=== PATIENT | female | born 1970 | race Caucasian/White ===

== ENCOUNTER 2016-12-22 07:18 | Emergency (ER) | payer BC ==
[2016-12-22 07:32] VITALS: BP 133/78
[2016-12-22] MEDS ORDERED: Sodium Chloride 0.9% 10 ML Syringe FLUSH PRN (07:45)
[2016-12-22] MEDS ORDERED: Sodium Chloride 0.9% 500 ML IV ONE (07:46)
--- NOTE | 2016-12-22 08:42 | EDM.PDOC ---
ED HPI GENERAL MEDICAL PROBLEM - General Chief Complaint: Flank Pain Stated Complaint: FLANK PAIN Time Seen by Provider: 12/22/16 07:27 Source of Information: Reports: Patient, RN Notes Reviewed - History of Present Illness INITIAL COMMENTS - FREE TEXT/NARRATIVE: 46-year-old female comes in with right low back pain. She had potential injury about 2 weeks ago when a horse stepped over her. However no bruise or specific injury that she was aware of at the time. She did have some hematuria for a day or 2 after that but no major back or flank discomfort. She then started having hematuria a couple of days ago described as "orange urine". She has been having right back discomfort that was quite severe for a period of time this morning now somewhat better. The pain has not been radiating to the right flank or right abdomen. No nausea vomiting fever chills. No voiding burning or dysuria. Right Upper Flank Pain Score (Numeric/FACES): 3 - Related Data Allergies Allergy/AdvReac Type Severity Reaction Status Date / Time metal Allergy Rash Uncoded 06/14/14 05:49 Home Meds: Home Meds Acetaminophen/HYDROcodone [[place] 325-5 MG] 1 tab PO Q6H PRN #14 tablet 12/22/16 [Rx] Past Medical History Genitourinary History: Reports: Renal Calculus Social & Family History - Tobacco Use Smoking Status *Q: Never Smoker Second Hand Smoke Exposure: No - Caffeine Use Caffeine Use: Reports: Coffee - Alcohol Use Days Per Week of Alcohol Use: 0 - Recreational Drug Use Recreational Drug Use: No ED ROS GENERAL - Review of Systems Review Of Systems: See Below Constitutional: Denies: Fever, Chills, Diaphoresis HEENT: Reports: No Symptoms Respiratory: Denies: Shortness of Breath, Pleuritic Chest Pain GI/Abdominal: Denies: Abdominal Pain, Diarrhea, Nausea, Vomiting : Reports: Hematuria (Mild). Denies: Dysuria, Pain Musculoskeletal: Reports: Back Pain (Right back discomfort) Skin: Reports: No Symptoms Neurological: Reports: No Symptoms ED EXAM,LOWER BACK PAIN/INJURY - Physical Exam Exam: See Below General Appearance: Alert, No Apparent Distress Eye Exam: Bilateral Eye: PERRL Throat/Mouth: Normal Inspection, Normal Oropharynx Head: No: Facial Swelling Neck: Supple, Full Range of Motion Respiratory/Chest: No Respiratory Distress, Lungs Clear, Normal Breath Sounds Cardiovascular: Bradycardia GI/Abdominal: Soft, Non-Tender. No: Guarding Back Exam: Paraspinal Tenderness (For a mild tenderness right low back). No: CVA Tenderness (L), CVA Tenderness (R) Extremities: No: Normal Inspection, Leg Pain Neurological: Alert, No Motor/Sensory Deficits, Oriented x 3 Course - Vital Signs Last Recorded V/S: Last Vital Signs Temp 97.3 F 12/22/16 07:27 Pulse 50 L 12/22/16 07:27 Resp 18 12/22/16 07:27 BP 133/78 12/22/16 07:27 Pulse Ox 97 12/22/16 07:27 - Orders/Labs/Meds Orders: Active Orders 24 hr Category Date Time Status Peripheral IV Care [RC] . DIRECTED Care 12/22/16 07:46 Active Peripheral IV Insertion Adult [OM.PC] Stat Oth 12/22/16 07:45 Ordered Labs: Laboratory Tests 12/22/16 12/22/16 12/22/16 Range/Units 07:54 07:54 08:56 WBC 5.71 (3.98-10.04) K/mm3 RBC 4.30 (3.98-5.22) M/mm3 Hgb 12.6 (11.2-15.7) gm/L Hct 38.1 (34.1-44.9) % MCV 88.6 (79.4-94.8) fl MCH 29.3 (25.6-32.2) pg MCHC 33.1 (32.2-35.5) g/dl RDW Std Deviation 41.5 (36.4-46.3) fL Plt Count 239 (182-369) K/mm3 MPV 9.5 (9.4-12.3) fl Neut % (Auto) 51.8 (34.0-71.1) % Lymph % (Auto) 30.6 (19.3-51.7) % [place] % (Auto) 14.5 H (4.7-12.5) % Eos % (Auto) 2.5 (0.7-5.8) Baso % (Auto) 0.4 (0.1-1.2) % Neut # (Auto) 2.96 (1.56-6.13) K/mm3 Lymph # (Auto) 1.75 (1.18-3.74) K/mm3 [place] # (Auto) 0.83 H (0.24-0.36) K/mm3 Eos # (Auto) 0.14 (0.04-0.36) K/mm3 Baso # (Auto) 0.02 (0.01-0.08) K/mm3 Sodium 143 (136-145) mEq/L Potassium 3.9 (3.5-5.1) mEq/L Chloride 108 H (98-107) mEq/L Carbon Dioxide 24 (21-32) mEq/L Anion Gap 14.9 (5-15) BUN 14 (7-18) mg/dL Creatinine 0.8 (0.55-1.02) mg/dL Est Cr Clr Drug Dosing 100.30 mL/min Estimated GFR (MDRD) > 60 (>60) mL/min BUN/Creatinine Ratio 17.5 (14-18) Glucose 91 (74-106) mg/dL Calcium 8.7 (8.5-10.1) mg/dL Total Bilirubin 0.4 (0.2-1.0) mg/dL AST 14 L (15-37) U/L ALT 23 (14-59) U/L Alkaline Phosphatase 63 (46-116) U/L Total Protein 6.5 (6.4-8.2) g/dl Albumin 3.6 (3.4-5.0) g/dl Globulin 2.9 gm/dL Albumin/Globulin Ratio 1.2 (1-2) Urine Color Yellow (Yellow) Urine Appearance Clear (Clear) Urine pH 6.0 (5.0-8.0) Ur Specific [place] 1.025 (1.005-1.030) Urine Protein Negative (Negative) Urine Glucose (UA) Negative (Negative) Urine Ketones Negative (Negative) Urine Occult Blood 3+ H (Negative) Urine Nitrite Negative (Negative) Urine Bilirubin Negative (Negative) Urine Urobilinogen 0.2 (0.2-1.0) Ur Leukocyte Esterase Negative (Negative) Urine RBC 10-20 H (0-5) /hpf Urine WBC 0-5 (0-5) /hpf Ur Epithelial Cells 0-5 (0-5) /hpf Urine Bacteria Few (FEW) /hpf Urine Mucus Few (FEW) /hpf Meds: Medications Discontinued Medications Generic Name Dose Route Start Last Admin Trade Name Freq PRN Reason Stop Dose Admin Sodium Chloride 500 mls @ 999 mls/hr 12/22/16 07:46 12/22/16 07:53 Normal Saline IV 12/22/16 08:16 999 mls/hr .BOLUS ONE Administration Sodium Chloride 10 ml 12/22/16 07:45 12/22/16 07:53 Saline Flush FLUSH 10 ml ASDIRECTED PRN Administration Keep Vein Open - Re-Assessments/Exams Free Text/Narrative Re-Assessment/Exam: 12/22/16 10:54 CT of abdomen pelvis does show a 6 mm stone right UPJ. There is some hydronephrosis of the right kidney. See radiology report for details. She has been resting quite comfortably while here in the ED. She she has been offered Tylenol but does not want that or anything else at this time. She has seen a Urologist before with her prior kidney stone at [facility]. She will call and make an appointment for first available appointment. We've asked radiology to push the study to [facility]. Departure - Departure Time of Disposition: 09:21 Disposition: Home, Self-Care 01 Condition: Fair Clinical Impression: Kidney stone on right side - Discharge Information Prescriptions: Acetaminophen/HYDROcodone [[place] 325-5 MG] 1 tab PO Q6H PRN #14 tablet PRN Reason: Pain Instructions: Kidney Stones, [id number] Referrals: Jesusita Hoffmann, [employer] [Primary Care Provider] - Forms: ED Department Discharge Additional Instructions: If you feel like the stone is traveling than strain urine to watch for stone. Drink plenty of water to maintain hydration. Tylenol for mild to moderate discomfort or hydrocodone if needed for severe pain. See your Urologist at [facility] as soon as possible this week, call for next available appointment. We have asked radiology to push your CT scan to [facility]. Return to ED as needed. - My Orders Last 24 Hours: My Active Orders 12/22/16 07:45 Peripheral IV Insertion Adult [OM.PC] Stat 12/22/16 07:46 Peripheral IV Care [RC] . DIRECTED - Assessment/Plan Last 24 Hours: My Active Orders 12/22/16 07:45 Peripheral IV Insertion Adult [OM.PC] Stat 12/22/16 07:46 Peripheral IV Care [RC] . DIRECTED
--- NOTE | 2016-12-22 08:45 | CT ---
CT abdomen and pelvis Technique: Multiple axial sections were obtained from the top of the liver inferiorly through the pubic symphysis. Intravenous and oral contrast was not utilized. Study has been performed as a ureteral stone protocol. Comparison: Previous noncontrast stone protocol CT dated 06/14/14. Findings: Hydronephrosis is noted of the right kidney. This finding is due to an obstructing stone located within the proximal right ureter at the UPJ. This stone measures approximately 6.0 mm. Small nonobstructing stone is noted within both kidneys. No other ureteral calculus is seen. Visualized lung bases show nothing acute. Noncontrast appearance of the liver and spleen appear within normal limits. Adrenal glands show no nodule. Pancreas is within normal limits. Gallbladder shows no calcified gallstones. Aorta shows no aneurysmal dilatation. No retroperitoneal adenopathy or mesenteric abnormalities are seen. No pelvic mass or adenopathy is seen. Appendix is seen which is normal. No pelvic mass or adenopathy is identified. Bone window settings were reviewed which appear within normal limits for the patient's age. Impression: 1. 6 mm obstructing stone located proximally within the right ureter at the UPJ. 2. Small nonobstructing stone is noted within each kidney. 3. Other normal findings as described above. Diagnostic code #3
== END 2016-12-22 09:31 | disposition home or self-care (01) ==
LOC: JD.ED 07:18
DX: N13.2 Hydronephrosis with renal and ureteral calculous obstruction (principal)
CPT/HCPCS: 36415; 74176; 80053; 81001; 85025; 99284; J7040; J7050; 99283

== ENCOUNTER 2017-02-13 10:34 | Emergency (ER) | payer BC ==
[2017-02-13 10:52] VITALS: BP 157/96
[2017-02-13] MEDS ORDERED: HYDROmorphone 1 MG/ML Syringe IVPUSH ONE (11:18)
[2017-02-13] MEDS ORDERED: Ondansetron 4 MG/2 ML SDV IVPUSH ONE (11:18)
[2017-02-13] MEDS ORDERED: Sodium Chloride 0.9% 1,000 ML IV ONE ×2 (11:18→13:47)
[2017-02-13] MEDS ORDERED: Sodium Chloride 0.9% 10 ML Syringe FLUSH PRN (11:18)
--- NOTE | 2017-02-13 11:21 | EDM.PDOC ---
ED HPI GENERAL MEDICAL PROBLEM - General Chief Complaint: Flank Pain Stated Complaint: LOWER ABD PAIN BACK PAIN VOMITING Time Seen by Provider: 02/13/17 11:10 Source of Information: Reports: Patient, Old Records (recent ER visit 2016 ) History Limitations: Reports: No Limitations - History of Present Illness INITIAL COMMENTS - FREE TEXT/NARRATIVE: 46 year old female presents for evaluation and treatment of right flank and back pain. Reports the pain started this morning. Reports associated symptoms of nausea, vomiting, headache, dysuria, increased urinary freqyncy and hematuria. No fevers or abdominal pain. Patient reports she has had 2 kidney stones in the past. Most recently had a stone in November,. She was seen here and found to have a 6mm stone, does not recall the side. She followed up with her urologist in [place]. Plan was to have a lithotripsy but they could not find the stone at that time. Patient is also complaining of a headache. Review of the records shows the patient had a 6mm obstructing stone in the right ureter. Onset: Today Location: Reports: Back (right lower back and flank) Right Flank Pain Score (Numeric/FACES): 10 - Related Data Allergies Allergy/AdvReac Type Severity Reaction Status Date / Time metal Allergy Rash Uncoded 02/13/17 10:55 Home Meds: Home Meds Acetaminophen/HYDROcodone [[place] 325-5 MG] 1 tab PO Q6H PRN #14 tablet 12/22/16 [Rx] Tamsulosin [Flomax] 0.4 mg PO DAILY PRN 02/13/17 [History] Past Medical History Genitourinary History: Reports: Renal Calculus - Past Surgical History Female Surgical History: Reports: Lithotripsy/ESWL Social & Family History - Tobacco Use Smoking Status *Q: Never Smoker Second Hand Smoke Exposure: No - Caffeine Use Caffeine Use: Reports: Coffee - Alcohol Use Days Per Week of Alcohol Use: 0 - Recreational Drug Use Recreational Drug Use: No ED ROS GENERAL - Review of Systems Review Of Systems: See Below Constitutional: Denies: Fever GI/Abdominal: Reports: Nausea, Vomiting. Denies: Abdominal Pain : Reports: Dysuria, Flank Pain (right), Frequency, Hematuria Musculoskeletal: Reports: Back Pain (right mid back) Neurological: Reports: Headache ED EXAM, RENAL/ - Physical Exam Exam: See Below Exam Limited By: No Limitations General Appearance: Alert, WD/WN, Mild Distress, Obese Neck: Normal Inspection Respiratory/Chest: No Respiratory Distress, Lungs Clear, Normal Breath Sounds Cardiovascular: Normal Peripheral Pulses, Regular Rate, Rhythm, No Murmur GI/Abdominal: Normal Bowel Sounds, Soft, Non-Tender Back Exam: Normal Inspection, CVA Tenderness (R). No: CVA Tenderness (L) Neurological: Alert, Oriented, Normal Cognition Psychiatric: Normal Affect, Normal Mood Skin Exam: Warm, Dry, Normal Color Course - Vital Signs Last Recorded V/S: Last Vital Signs Temp 35.3 C 02/13/17 10:49 Pulse 74 02/13/17 10:49 Resp 16 02/13/17 10:49 BP 157/96 H 02/13/17 10:49 Pulse Ox 99 02/13/17 10:49 - Orders/Labs/Meds Orders: Active Orders 24 hr Category Date Time Status Peripheral IV Care [RC] . DIRECTED Care 02/13/17 11:18 Active CULTURE URINE [RM] Stat Lab 02/13/17 11:17 Received Peripheral IV Insertion Adult [OM.PC] Routine Oth 02/13/17 11:18 Ordered Labs: Laboratory Tests 02/13/17 02/13/17 02/13/17 Range/Units 11:00 11:00 11:00 WBC 10.72 H (3.98-10.04) K/mm3 RBC 4.57 (3.98-5.22) M/mm3 Hgb 13.3 (11.2-15.7) gm/L Hct 40.1 (34.1-44.9) % MCV 87.7 (79.4-94.8) fl MCH 29.1 (25.6-32.2) pg MCHC 33.2 (32.2-35.5) g/dl RDW Std Deviation 42.5 (36.4-46.3) fL Plt Count 260 (182-369) K/mm3 MPV 10.0 (9.4-12.3) fl Neut % (Auto) 73.7 H (34.0-71.1) % Lymph % (Auto) 14.8 L (19.3-51.7) % [place] % (Auto) 10.2 (4.7-12.5) % Eos % (Auto) 0.7 (0.7-5.8) Baso % (Auto) 0.3 (0.1-1.2) % Neut # (Auto) 7.90 H (1.56-6.13) K/mm3 Lymph # (Auto) 1.59 (1.18-3.74) K/mm3 [place] # (Auto) 1.09 H (0.24-0.36) K/mm3 Eos # (Auto) 0.08 (0.04-0.36) K/mm3 Baso # (Auto) 0.03 (0.01-0.08) K/mm3 Sodium 140 (136-145) mEq/L Potassium 4.1 (3.5-5.1) mEq/L Chloride 106 (98-107) mEq/L Carbon Dioxide 21 (21-32) mEq/L Anion Gap 17.1 H (5-15) BUN 11 (7-18) mg/dL Creatinine 0.9 (0.55-1.02) mg/dL Est Cr Clr Drug Dosing 89.15 mL/min Estimated GFR (MDRD) > 60 (>60) mL/min BUN/Creatinine Ratio 12.2 L (14-18) Glucose 106 (74-106) mg/dL Calcium 9.0 (8.5-10.1) mg/dL Total Bilirubin 0.5 (0.2-1.0) mg/dL AST 14 L (15-37) U/L ALT 25 (14-59) U/L Alkaline Phosphatase 75 (46-116) U/L C-Reactive Protein 0.8 (<1.0) mg/dL Total Protein 7.3 (6.4-8.2) g/dl Albumin 4.0 (3.4-5.0) g/dl Globulin 3.3 gm/dL Albumin/Globulin Ratio 1.2 (1-2) Urine Color (Yellow) Urine Appearance (Clear) Urine pH (5.0-8.0) Ur Specific [place] (1.005-1.030) Urine Protein (Negative) Urine Glucose (UA) (Negative) Urine Ketones (Negative) Urine Occult Blood (Negative) Urine Nitrite (Negative) Urine Bilirubin (Negative) Urine Urobilinogen (0.2-1.0) Ur Leukocyte Esterase (Negative) Urine RBC (0-5) /hpf Urine WBC (0-5) /hpf Ur Epithelial Cells (0-5) /hpf Urine Bacteria (FEW) /hpf Urine Mucus (FEW) /hpf Urine HCG, Qual (NEGATIVE) 02/13/17 02/13/17 Range/Units 11:17 11:17 WBC (3.98-10.04) K/mm3 RBC (3.98-5.22) M/mm3 Hgb (11.2-15.7) gm/L Hct (34.1-44.9) % MCV (79.4-94.8) fl MCH (25.6-32.2) pg MCHC (32.2-35.5) g/dl RDW Std Deviation (36.4-46.3) fL Plt Count (182-369) K/mm3 MPV (9.4-12.3) fl Neut % (Auto) (34.0-71.1) % Lymph % (Auto) (19.3-51.7) % [place] % (Auto) (4.7-12.5) % Eos % (Auto) (0.7-5.8) Baso % (Auto) (0.1-1.2) % Neut # (Auto) (1.56-6.13) K/mm3 Lymph # (Auto) (1.18-3.74) K/mm3 [place] # (Auto) (0.24-0.36) K/mm3 Eos # (Auto) (0.04-0.36) K/mm3 Baso # (Auto) (0.01-0.08) K/mm3 Sodium (136-145) mEq/L Potassium (3.5-5.1) mEq/L Chloride (98-107) mEq/L Carbon Dioxide (21-32) mEq/L Anion Gap (5-15) BUN (7-18) mg/dL Creatinine (0.55-1.02) mg/dL Est Cr Clr Drug Dosing mL/min Estimated GFR (MDRD) (>60) mL/min BUN/Creatinine Ratio (14-18) Glucose (74-106) mg/dL Calcium (8.5-10.1) mg/dL Total Bilirubin (0.2-1.0) mg/dL AST (15-37) U/L ALT (14-59) U/L Alkaline Phosphatase (46-116) U/L C-Reactive Protein (<1.0) mg/dL Total Protein (6.4-8.2) g/dl Albumin (3.4-5.0) g/dl Globulin gm/dL Albumin/Globulin Ratio (1-2) Urine Color Red H (Yellow) Urine Appearance Clear (Clear) Urine pH 5.0 (5.0-8.0) Ur Specific [place] 1.020 (1.005-1.030) Urine Protein 2+ H (Negative) Urine Glucose (UA) Trace H (Negative) Urine Ketones Trace H (Negative) Urine Occult Blood 3+ H (Negative) Urine Nitrite Positive H (Negative) Urine Bilirubin 1+ H (Negative) Urine Urobilinogen 2.0 H (0.2-1.0) Ur Leukocyte Esterase 3+ H (Negative) Urine RBC 40-50 H (0-5) /hpf Urine WBC 5-10 H (0-5) /hpf Ur Epithelial Cells 0-5 (0-5) /hpf Urine Bacteria Moderate H (FEW) /hpf Urine Mucus Moderate H (FEW) /hpf Urine HCG, Qual Negative (NEGATIVE) Meds: Medications Discontinued Medications Generic Name Dose Route Start Last Admin Trade Name Freq PRN Reason Stop Dose Admin Hydromorphone HCl 1 mg 02/13/17 11:18 02/13/17 11:24 Dilaudid IVPUSH 02/13/17 11:19 1 mg ONETIME ONE Administration Hydromorphone HCl 0.5 mg 02/13/17 13:13 02/13/17 13:30 Dilaudid IVPUSH 02/13/17 13:14 0.5 mg ONETIME ONE Administration Sodium Chloride 1,000 mls @ 999 mls/hr 02/13/17 11:18 02/13/17 11:24 Normal Saline IV 02/13/17 12:18 999 mls/hr ONETIME ONE Administration Ceftriaxone Sodium 2 gm/ 100 mls @ 200 mls/hr 02/13/17 12:22 02/13/17 12:33 Sodium Chloride IV 02/13/17 12:51 200 mls/hr ONETIME ONE Administration Sodium Chloride 500 mls @ 999 mls/hr 02/13/17 12:31 02/13/17 12:34 Normal Saline IV 02/13/17 13:01 999 mls/hr ONETIME ONE Administration Sodium Chloride 1,000 mls @ 100 mls/hr 02/13/17 13:47 Normal Saline IV 02/13/17 23:46 ONETIME ONE Ketorolac Tromethamine 30 mg 02/13/17 13:13 02/13/17 13:30 Toradol IVPUSH 02/13/17 13:14 30 mg ONETIME ONE Administration Ondansetron HCl 4 mg 02/13/17 11:18 02/13/17 11:23 Zofran IVPUSH 02/13/17 11:19 4 mg ONETIME ONE Administration Sodium Chloride 10 ml 02/13/17 11:18 02/13/17 11:23 Saline Flush FLUSH 10 ml ASDIRECTED PRN Administration Keep Vein Open - Radiology Interpretation Free Text/Narrative:: CT abdomen and pelvis Technique: Multiple axial sections were obtained from the top the liver inferiorly through the pubic symphysis. Intravenous and oral contrast was not utilized. Study has been performed as a ureteral stone protocol. Comparison: Previous stone protocol CT exam of 12/22/16. Findings: Right sided hydronephrosis is seen with dilated ureter down to the UVJ. This finding is caused by a 6 mm stone located at the UVJ. Stone was seen previously at the UPJ and this could represent distal migration of the same stone. Single nonobstructing calculus is seen within both kidneys which remains stable from prior exam. Visualized lung bases shows nothing acute. Noncontrast appearance of the liver and spleen appears within normal limits. Adrenal glands show no nodule. Pancreas is within normal limits. Gallbladder contains no calcified gallstones. Abdominal aorta shows no aneurysmal dilatation. No retroperitoneal adenopathy or mesenteric abnormalities are seen. Appendix is seen which appears normal. No pelvic mass or adenopathy is seen. Bone window settings were reviewed which appears within normal limits for the patient's age. Impression: 1. 6 mm obstructing stone at the UVJ causing proximal hydronephrosis. As mentioned above, this could be the same stone as seen on prior CT exam which was previously obstructing at the UPJ. 2. Single nonobstructing stone within each kidney. 3. No additional abnormality is identified. - Re-Assessments/Exams Free Text/Narrative Re-Assessment/Exam: 02/13/17 12:[address] Stone from -2016 CT appears to have moved. Awaiting formal radiology read. Stranding appreciated around the right kidney. Urine shows a urinary tract infection. Will start rocephin 2g IV for a pyelo. CT report from November, CT abdomen and pelvis Technique: Multiple axial sections were obtained from the top of the liver inferiorly through the pubic symphysis. Intravenous and oral contrast was not utilized. Study has been performed as a ureteral stone protocol. Comparison: Previous noncontrast stone protocol CT dated 06/14/14. Findings: Hydronephrosis is noted of the right kidney. This finding is due to an obstructing stone located within the proximal right ureter at the UPJ. This stone measures approximately 6.0 mm. Small nonobstructing stone is noted within both kidneys. No other ureteral calculus is seen. Visualized lung bases show nothing acute. Noncontrast appearance of the liver and spleen appear within normal limits. Adrenal glands show no nodule. Pancreas is within normal limits. Gallbladder shows no calcified gallstones. Aorta shows no aneurysmal dilatation. No retroperitoneal adenopathy or mesenteric abnormalities are seen. No pelvic mass or adenopathy is seen. Appendix is seen which is normal. No pelvic mass or adenopathy is identified. Bone window settings were reviewed which appear within normal limits for the patient's age. Impression: 1. 6 mm obstructing stone located proximally within the right ureter at the UPJ. 2. Small nonobstructing stone is noted within each kidney. 3. Other normal findings as described above. 02/13/17 13:53 Attempted to speak with [facility], they are currently in the OR and will call back shortly. Patient has received 2 grams IV rocephin. 02/13/17 15:11 Called [facility] to speak with urology. Still in OR. Will call back if no return phone call at 15:45 02/13/17 16:11 Discussed the case with Dr. Schulte, urology [place]. He would like to see her in the [facility]. Informed [facility], Dr. Judd is aware of the case. Discussed transportation with patient. I do feel she is stable enough to go by private vehicle. She does have a ride, reports her can take her. She would also like to go by private vehicle. plan will be to sent to [facility] in [place]. She is to go to the ER. Departure - Departure Time of Disposition: 16:14 Disposition: DC/Tfer to Acute Hospital 02 Condition: Fair Clinical Impression: UTI, Urinary tract infectious disease, Kidney stone on right side - Discharge Information Referrals: Jesusita Hoffmann, [employer] [Primary Care Provider] - Forms: ED Department Discharge Additional Instructions: Go to the [facility]. Dr. Schulte, urology, would like you to go to the ER. Dr. Judd in the ER is aware you are coming. do not eat or drink anything. Call [facility] for any problems. Call [facility] at [phone] if you have any questions or concerns. - My Orders Last 24 Hours: My Active Orders 02/13/17 11:17 CULTURE URINE [RM] Stat 02/13/17 11:18 Peripheral IV Care [RC] . DIRECTED Peripheral IV Insertion Adult [OM.PC] Routine - Assessment/Plan Last 24 Hours: My Active Orders 02/13/17 11:17 CULTURE URINE [RM] Stat 02/13/17 11:18 Peripheral IV Care [RC] . DIRECTED Peripheral IV Insertion Adult [OM.PC] Routine
[2017-02-13] MEDS ORDERED: cefTRIAXone 2 GM in Sodium Chloride 0.9% 100 ML IV ONE (12:22)
[2017-02-13] MEDS ORDERED: Sodium Chloride 0.9% 500 ML IV ONE (12:31)
--- NOTE | 2017-02-13 12:54 | CT ---
CT abdomen and pelvis Technique: Multiple axial sections were obtained from the top the liver inferiorly through the pubic symphysis. Intravenous and oral contrast was not utilized. Study has been performed as a ureteral stone protocol. Comparison: Previous stone protocol CT exam of 12/22/16. Findings: Right sided hydronephrosis is seen with dilated ureter down to the UVJ. This finding is caused by a 6 mm stone located at the UVJ. Stone was seen previously at the UPJ and this could represent distal migration of the same stone. Single nonobstructing calculus is seen within both kidneys which remains stable from prior exam. Visualized lung bases shows nothing acute. Noncontrast appearance of the liver and spleen appears within normal limits. Adrenal glands show no nodule. Pancreas is within normal limits. Gallbladder contains no calcified gallstones. Abdominal aorta shows no aneurysmal dilatation. No retroperitoneal adenopathy or mesenteric abnormalities are seen. Appendix is seen which appears normal. No pelvic mass or adenopathy is seen. Bone window settings were reviewed which appears within normal limits for the patient's age. Impression: 1. 6 mm obstructing stone at the UVJ causing proximal hydronephrosis. As mentioned above, this could be the same stone as seen on prior CT exam which was previously obstructing at the UPJ. 2. Single nonobstructing stone within each kidney. 3. No additional abnormality is identified. Diagnostic code #3
[2017-02-13] MEDS ORDERED: HYDROmorphone 0.5 MG/0.5 ML Syringe IVPUSH ONE (13:13)
[2017-02-13] MEDS ORDERED: Ketorolac 30 MG/ML SDV IVPUSH ONE (13:13)
== END 2017-02-13 16:45 ==
LOC: JD.ED 10:34
DX: N39.0 Urinary tract infection, site not specified (principal); N13.2 Hydronephrosis with renal and ureteral calculous obstruction; Z91.048 Other nonmedicinal substance allergy status; Z79.899 Other long term (current) drug therapy
CPT/HCPCS: 36415; 74176; 80053; 81001; 81025; 85025; 86140; 87086; 96361; 96365; 96375; 96376; 99284; J0696; J1170; J1885; J2405; J7030; J7040; J7050

== ENCOUNTER 2020-08-03 00:09 | Emergency (ER) | payer BC ==
[2020-08-03 00:16] VITALS: BP 148/99; PULSE 78
[2020-08-03] MEDS ORDERED: HYDROmorphone 1 MG/ML Syringe IVPUSH ONE (00:49)
[2020-08-03] MEDS ORDERED: Tamsulosin 0.4 MG Cap.ER PO ONE (00:49)
[2020-08-03] MEDS ORDERED: Ondansetron 4 MG/2 ML SDV IVPUSH ONE (00:49)
--- NOTE | 2020-08-03 00:54 | EDM.PDOC ---
ED HPI GENERAL MEDICAL PROBLEM - General Chief Complaint: Flank Pain Stated Complaint: KIDNEY STONE Time Seen by Provider: 08/03/20 00:31 Source of Information: Reports: Patient History Limitations: Reports: No Limitations - History of Present Illness INITIAL COMMENTS - FREE TEXT/NARRATIVE: Mrs. Rodriguez is a very pleasant 49-year-old woman who now presents to the ED with stabbing left flank pain that developed around 22:30 this evening. She states that the pain is constant, and she has not identified any modifiers. She states that it does not radiate. She states that it feels the same as prior kidney stones that she has had. She reports having nausea, vomiting, and urinary urgency, although no dysuria, fever, or gross hematuria. The patient states that she took some Aleve around 22:30, which did not seem to help. Here in the ED, the patient's initial BP is found to be mildly elevated at 148/99, otherwise, she is hemodynamically stable, afebrile, saturating 98% on room air. She appears to be uncomfortable, but in no acute distress. Prior to this evening, the patient denies having a recent fever, chills, sore throat, ear pain, nasal or sinus congestion, cough, dyspnea, chest pain, palpitations, nausea, vomiting, constipation, diarrhea, abdominal pain, urinary symptoms, recent weight gain or weight loss, recent bloody bowel movements or black bowel movements, recent joint aches, headaches, or rashes. The patient does not have a PCP. Left Flank Pain Score (Numeric/FACES): 9 - Related Data Allergies Allergy/AdvReac Type Severity Reaction Status Date / Time metal Allergy Rash Uncoded 08/03/20 00:16 Home Meds: Home Meds Acetaminophen/oxyCODONE [Percocet 325-5 MG] 1 - 2 tab PO Q6H PRN #20 tab 08/03/20 [Rx] Ondansetron [Zofran ODT] 1 tab PO Q8H PRN #10 tab.dis 08/03/20 [Rx] Tamsulosin HCl [Flomax] 1 cap PO QAM PRN #10 cap.er.24h 08/03/20 [Rx] Past Medical History Genitourinary History: Reports: Renal Calculus Endocrine/Metabolic History: Reports: Obesity/BMI 30+ - Past Surgical History HEENT Surgical History: Reports: Oral Surgery (dental extractions) Female Surgical History: Reports: D&C (x 1), Hysterectomy (partial), Lithotripsy/ESWL Musculoskeletal Surgical History: Reports: Other (See Below) (Right 5th toe pinning. 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 ED EXAM, RENAL/ - Physical Exam Exam: See Below Exam Limited By: No Limitations General Appearance: Alert, WD/WN, Mild Distress (appears uncomfortable) Eye Exam: Bilateral Eye: EOMI, Normal Inspection Ears: Normal External Exam, Hearing Grossly Normal Nose: Normal Inspection Throat/Mouth: Normal Inspection, Normal Lips, Normal Voice, No Airway Compromise Head: Atraumatic, Normocephalic Neck: Normal Inspection, Full Range of Motion Respiratory/Chest: No Respiratory Distress, Lungs Clear, Normal Breath Sounds, No Accessory Muscle Use Cardiovascular: Normal Peripheral Pulses, Regular Rate, Rhythm, No Gallop, No JVD, No Murmur, No Rub GI/Abdominal: Normal Bowel Sounds, Soft, Non-Tender, No Organomegaly, No Distention, No Abnormal Bruit, No Mass Back Exam: Normal Inspection, Full Range of Motion. No: CVA Tenderness (L), CVA Tenderness (R) Extremities: Normal Inspection, Normal Range of Motion, Normal Capillary Refill Neurological: Alert, Oriented, Normal Cognition, No Motor/Sensory Deficits Psychiatric: Normal Affect Skin Exam: Warm, Dry, Intact, Normal Color, No Rash Course - Vital Signs Last Recorded V/S: Last Vital Signs Temp 36.0 C L 08/03/20 00:14 Pulse 78 08/03/20 00:14 Resp 16 08/03/20 00:14 BP 148/99 H 08/03/20 00:14 Pulse Ox 98 08/03/20 00:14 - Orders/Labs/Meds Orders: Active Orders 24 hr Category Date Time Status Strain Urine [RC] ASDIRECTED Care 08/03/20 01:50 Active Abdomen Pelvis wo Cont [CT] Stat Exams 08/03/20 00:49 Taken HYDROmorphone [Dilaudid] Med 08/03/20 02:10 Once 0.5 mg IVPUSH ONETIME ONE Sodium Chloride 0.9% [Normal Saline] 1,000 ml Med 08/03/20 01:00 Active IV ASDIRECTED Medication Orders Sodium Chloride (Normal Saline) 1,000 mls @ 150 mls/hr IV ASDIRECTED CARLO Last Admin: 08/03/20 00:57 Dose: 150 mls/hr Documented by: STEPHAN Labs: Laboratory Tests 08/03/20 08/03/20 Range/Units 01:00 01:00 Urine Color Yellow (Yellow) Urine Appearance Slt cloudy H (Clear) Urine pH 5.5 (5.0-8.0) Ur Specific Elsie > or = 1.030 (1.005-1.030) Urine Protein 1+ H (Negative) Urine Glucose (UA) Negative (Negative) Urine Ketones 2+ H (Negative) Urine Occult Blood 3+ H (Negative) Urine Nitrite Negative (Negative) Urine Bilirubin 1+ H (Negative) Urine Urobilinogen 0.2 (0.2-1.0) Ur Leukocyte Esterase Negative (Negative) Urine RBC 5-10 H (0-5) /hpf Urine WBC 0-5 (0-5) /hpf Ur Squamous Epith Cells 10-20 H (0-5) /hpf Urine Bacteria Few (FEW) /hpf Urine Mucus Rare (FEW) /hpf Urine Yeast Few H (NOT SEEN) Urine HCG, Qual Negative (NEGATIVE) Meds: Medications Generic Name Dose Route Start Last Admin Trade Name Freq PRN Reason Stop Dose Admin Sodium Chloride 1,000 mls @ 150 mls/hr 08/03/20 01:00 08/03/20 00:57 Normal Saline IV 150 mls/hr ASDIRECTED CARLO Administration Discontinued Medications Generic Name Dose Route Start Last Admin Trade Name Freq PRN Reason Stop Dose Admin Hydromorphone HCl 1 mg 08/03/20 00:49 08/03/20 00:56 Hydromorphone 1 Mg/Ml Syringe IVPUSH 08/03/20 00:50 1 mg ONETIME ONE Administration Ondansetron HCl 4 mg 08/03/20 00:49 08/03/20 00:56 Ondansetron 4 Mg/2 Ml Sdv IVPUSH 08/03/20 00:50 4 mg ONETIME ONE Administration Tamsulosin HCl 0.4 mg 08/03/20 00:49 Tamsulosin 0.4 Mg Cap.Er PO 08/03/20 00:50 ONETIME ONE - Re-Assessments/Exams Free Text/Narrative Re-Assessment/Exam: 08/03/20 00:50 As above, the patient developed sharp non-radiating left flank pain around 2230 this evening, that feels the same as prior kidney stones. She took Aleve around 22:30, with no improvement in her symptoms. She has had nausea and vomiting, along with urinary urgency, although no dysuria or gross hematuria. She appears to be uncomfortable, although her physical exam is unremarkable. I have ordered a urinalysis by clean-catch, a urine test, and a CT of the abdomen and pelvis without contrast to evaluate for a left ureterolith. In the meantime, the patient will be given IV Dilaudid, oral Flomax, IV fluid, and IV Zofran. Because she just took Aleve, I have not ordered Toradol. 08/03/20 01:44 The patient's urinalysis is remarkable for a slightly cloudy appearance, 3+ occult blood with 5-10 RBCs, leukocyte esterase negative with 0-5 WBCs, nitrate negative with few bacteria, and 10-20 squamous epithelial cells. Her urine test is negative. CT of the abdomen and pelvis without contrast is read by [facility] as: 1. Partially obstructing proximal left ureteral stone. 2. Nonobstructing 3 mm stone in the lower pole of the left kidney. 3. Small hiatal hernia. The body of the report reads "4 mm partially obstructing proximal left ureteral stone." 08/03/20 01:49 Test results discussed with the patient. She states that she is feeling a lot better at this time. Given the size of the stone, she should be able to pass it on her her own, however, it may take some time. She will be given a urine strainer to take home, and she should stay adequately hydrated. She is to take [id number] ibuprofen around the clock. She will be given prescriptions for Percocet (our computer does not currently allow prescriptions for [place]), Flomax, and Zofran - she preferred these over prescriptions via [facility]. If she continues to have pain after 1 week, I would like her to follow-up with Dr. Noble. 08/03/20 02:11 The patient requested some additional pain medication before she is discharged home. I ordered Dilaudid 0.5 mg IV. Departure - Departure Time of Disposition: 01:51 Disposition: Home, Self-Care 01 Condition: Good Clinical Impression: Ureterolithiasis - Discharge Information *PRESCRIPTION DRUG MONITORING PROGRAM REVIEWED*: Not Applicable *COPY OF PRESCRIPTION DRUG MONITORING REPORT IN PATIENT EDIN: Not Applicable Prescriptions: Tamsulosin HCl [Flomax] 1 cap PO QAM PRN #10 cap.er.24h PRN Reason: Pain Acetaminophen/oxyCODONE [Percocet 325-5 MG] 1 - 2 tab PO Q6H PRN #20 tab PRN Reason: Pain (Severe 7-10) Ondansetron [Zofran ODT] 1 tab PO Q8H PRN #10 tab.dis PRN Reason: Nausea/Vomiting Referrals: PCP,None [Primary Care Provider] - Julian Noble MD [Ordering Only Provider] - Forms: ED Department Discharge Additional Instructions: You were seen in the emergency room after developing a left flank pain, along with nausea and vomiting. Work-up in the ER included a urinalysis, urine test, and a CT of your abdomen and pelvis without contrast. Your urinalysis showed no sign of an infection, and your urine test was negative. The CT scan found that you have a 4 mm stone in your upper left ureter. Based on the size and location of the stone, you will most likely pass it on your own, however, it may take some time. We recommend that you take [id number] ibuprofen, 3 to 4 tablets (600 to 800 mg) up to every 8 hours, with food, around the clock. You may take 1 to 2 tablets of the prescription opioid Percocet up to every 6 hours, as needed for pain not relieved by ibuprofen. If you take Percocet, do not drive or operate heavy machinery for 12 hours afterwards. Percocet may cause constipation, so consider taking a stool softener. Take 1 tablet of the anti-spasm medicine tamsulosin (Flomax) every morning, starting Thursday morning, 08/04/2020, as prescribed. We recommend that you stay adequately hydrated. It does not really matter what type of fluid you drink. You may dissolve 1 tablet of the antinausea medicine Zofran on your tongue up to every 8 hours, as needed for nausea/vomiting. We recommend that you strain all of your urine. If you capture the stone, please take it to a doctor for analysis. If you continue to have pain after 1 week, we recommend that you follow-up with the Urologist Dr. Julian Noble, in [place]. Do not forget that [place] is 1 hour ahead of us. If any other problems, please do not hesitate to return to the ER. Sepsis Event Note (ED) - Evaluation Sepsis Screening Result: No Definite Risk - Focused Exam Vital Signs: Vital Signs Temp Pulse Resp BP Pulse Ox 08/03/20 00:14 36.0 C L 78 16 148/99 H 98 - My Orders Last 24 Hours: My Active Orders 08/03/20 00:49 Abdomen Pelvis wo Cont [CT] Stat 08/03/20 01:00 Sodium Chloride 0.9% [Normal Saline] 1,000 ml IV ASDIRECTED 08/03/20 01:50 Strain Urine [RC] ASDIRECTED 08/03/20 02:10 HYDROmorphone [Dilaudid] 0.5 mg IVPUSH ONETIME ONE - Assessment/Plan Last 24 Hours: My Active Orders 08/03/20 00:49 Abdomen Pelvis wo Cont [CT] Stat 08/03/20 01:00 Sodium Chloride 0.9% [Normal Saline] 1,000 ml IV ASDIRECTED 08/03/20 01:50 Strain Urine [RC] ASDIRECTED 08/03/20 02:10 HYDROmorphone [Dilaudid] 0.5 mg IVPUSH ONETIME ONE
[2020-08-03] MEDS ORDERED: Sodium Chloride 0.9% 1,000 ML IV SCH (01:00)
[2020-08-03] MEDS ORDERED: HYDROmorphone 0.5 MG/0.5 ML Syringe IVPUSH ONE (02:10)
--- NOTE | 2020-08-03 07:19 | CT ---
CT abdomen and pelvis Technique: Multiple axial sections were obtained from above the dome of the diaphragm inferiorly through the pubic symphysis. Intravenous and oral contrast were not utilized. Study has been performed as a ureteral stone protocol. Comparison: Prior CT abdomen and pelvis study of 02/13/17. Findings: Visualized lung bases show nothing acute. Noncontrast appearance of the liver shows no focal abnormality. Small hiatal hernia is noted. Spleen size is normal. Adrenal glands show no nodules. Gallbladder contains no calcified gallstones. Pancreas appears within normal limits. Small 3 mm nonobstructing calculus is noted within the lower left kidney. Small 4-5 mm calculus is noted within the proximal left ureter which causes proximal hydronephrosis. No other abnormal calcifications are seen within the kidneys or within the ureters. Abdominal aorta shows no aneurysm. No retroperitoneal adenopathy is seen. Appendix is seen which is normal. No pelvic mass or adenopathy is appreciated. Bone window settings were reviewed which show no acute osseous abnormality. Impression: 1. 3 mm nonobstructing calculus within the lower left kidney. 2. 4-5 mm obstructing calculus within the proximal left ureter causing proximal hydronephrosis. 3. Small hiatal hernia. Diagnostic code #3 I agree with preliminary report from [facility], finalized on 08/03/20, 2:42 AM CDT, code 1
== END 2020-08-03 02:24 | disposition home or self-care (01) ==
LOC: JD.ED 00:09
DX: N20.1 Calculus of ureter (principal); E66.9 Obesity, unspecified; Z68.30 Body mass index [BMI] 30.0-30.9, adult; Z91.048 Other nonmedicinal substance allergy status
CPT/HCPCS: 74176; 81001; 81025; 96374; 96375; 96376; 99284; A9270; J1170; J2405; J7030; 99283